=== PATIENT | female | born 1940 | race Caucasian/White ===

== ENCOUNTER 2017-06-24 17:15 | Observation (INO) | payer MEDICARE, BC ==
[2017-06-24] MEDS ORDERED: Sodium Chloride 0.9% 2.5 ML Syringe FLUSH PRN (17:28)
[2017-06-24] MEDS ORDERED: Sodium Chloride 0.9% 10 ML Syringe FLUSH PRN (17:28)
[2017-06-24] MEDS ORDERED: Albuterol/Ipratropium 3.0-0.5 MG/3 ML Neb Soln NEB ONE (17:29)
--- NOTE | 2017-06-24 17:33 | EDM.PDOC ---
ED HPI GENERAL MEDICAL PROBLEM - General Chief Complaint: Respiratory Problem Stated Complaint: SOB Time Seen by Provider: 06/24/17 17:29 Source of Information: Reports: Patient History Limitations: Reports: No Limitations - History of Present Illness INITIAL COMMENTS - FREE TEXT/NARRATIVE: HISTORY AND PHYSICAL: []76-year-old female presenting with shortness of breath for the last 2 days History of Present Illness: []Is visiting from [facility]. And has had increasing shortness of breath. She has low-grade fever. She has been using her albuterol inhaler more frequently for the last 2 weeks Does report recent history of a pneumonia Review of Systems: As per history of present illness and below otherwise all systems reviewed and negative. Past medical history: As per history of present illness and as reviewed below otherwise noncontributory. Surgical history: As per history of present illness and as reviewed below otherwise noncontributory. Social history: No reported history of drug or alcohol abuse. Family history: As per history of present illness and as reviewed below otherwise noncontributory. Physical exam: Very pleasant female. Breathy sounding with speaking. Denies any chest pain has never had any heart condition. HEENT: Atraumatic, normocehpalic, pupils reactive, negative for conjunctival pallor or scleral icterus, mucous membranes moist, throat clear, neck supple, nontender, trachea midline. Lungs: Clear to auscultation, breath sounds equal bilaterally, chest non tender. Shallow breath sounds Heart: S1S2, regular, negative for clicks, rubs, or JVD. Abdomen: Soft, nondistended, nontender. Negative for masses or hepatossplenmegaly. Negative for costovertebral tenderness. Pelvis: Stable nontender. Genitourinary: Deferred. Rectal: Deferred Extremities: Atraumatic, negative for cords or calf pain. Neurovascular unremarkable. Neuro: Awake, alert, oriented. Cranial nerves II through XII unremarkable. Cerebellum unremarkable. Motor and sensory unremarkable throughout. Exam nonfocal. Discussed results with the patient and her daughter, they are agreeable to recommended course of action Discussed case with Dr. Smith who is agreement for observation Diagnostics: []CBC CMP lactic acid chest x-ray troponin Therapeutics: []DuoNeb Impression: []Right-sided pneumonia Plan: []Refer for observation Definitive disposition and diagnosis as appropriate pending reevaluation and review of above. Onset: Gradual Duration: Day(s): (3) Location: Reports: Chest Quality: Reports: Ache Severity: Moderate Improves with: Reports: None Worsens with: Reports: None Associated Symptoms: Reports: Cough, Fever/Chills, Shortness of Breath - Related Data Allergies Allergy/AdvReac Type Severity Reaction Status Date / Time No Known Allergies Allergy Verified 06/24/17 17:22 Home Meds: Home Meds Amoxicillin/Potassium Clav [Augmentin 875-125 Tablet] 1 each PO BID #14 tablet 06/24/17 [Rx] Past Medical History Cardiovascular History: Reports: Hypertension, Other (See Below) Other Cardiovascular History: on water pills, unsure of what for Respiratory History: Reports: COPD - Infectious Disease History Infectious Disease History: Reports: Chicken Pox, Measles, Mumps - Past Surgical History GI Surgical History: Reports: Appendectomy Female Surgical History: Reports: Section Social & Family History - Family History Family Medical History: Noncontributory - Tobacco Use Smoking Status *Q: Never Smoker - Recreational Drug Use Recreational Drug Use: No ED ROS GENERAL - Review of Systems Review Of Systems: ROS reveals no pertinent complaints other than HPI. ED EXAM, GENERAL - Physical Exam Exam: See Below (See dictation) Course - Vital Signs Last Recorded V/S: Last Vital Signs Temp 38.2 C H 06/24/17 17:19 Pulse 108 H 06/24/17 17:19 Resp 22 H 06/24/17 17:19 BP 154/61 H 06/24/17 17:19 Pulse Ox 94 L 06/24/17 17:19 - Orders/Labs/Meds Orders: Active Orders 24 hr Category Date Time Status Patient Status [ADT] Stat ADT 06/24/17 19:41 Ordered EKG Documentation Completion [RC] STAT Care 06/24/17 17:28 Active RT Aerosol Therapy [RC] ASDIRECTED Care 06/24/17 17:29 Active Chest 2V [CR] Stat Exams 06/24/17 17:29 Taken CULTURE BLOOD [BC] Stat Lab 06/24/17 18:03 Received CULTURE BLOOD [BC] Stat Lab 06/24/17 18:17 Received Sodium Chloride 0.9% [Normal Saline] 1,000 ml Med 06/24/17 19:35 Ordered IV STAT Sodium Chloride 0.9% [Saline Flush] Med 06/24/17 17:28 Active 10 ml FLUSH ASDIRECTED PRN Sodium Chloride 0.9% [Saline Flush] Med 06/24/17 17:28 Active 2.5 ml FLUSH ASDIRECTED PRN cefTRIAXone [Rocephin in Dextrose,Iso-Osm 1 GM/50 ML] 1 Med 06/24/17 19:35 Ordered gm Premix Bag 1 bag IV ONETIME Blood Culture x2 Reflex Set [OM.PC] Stat Oth 06/24/17 17:59 Ordered Saline Lock Insert [OM.PC] Stat Oth 06/24/17 17:28 Ordered Medication Orders Ceftriaxone Sodium/Dextrose 1 (gm/ Premix) 50 mls @ 100 mls/hr IV ONETIME ONE Stop: 06/24/17 20:04 Sodium Chloride (Normal Saline) 1,000 mls @ 999 mls/hr IV STAT ONE Stop: 06/24/17 20:35 Sodium Chloride (Saline Flush) 10 ml FLUSH ASDIRECTED PRN PRN Reason: Keep Vein Open Sodium Chloride (Saline Flush) 2.5 ml FLUSH ASDIRECTED PRN PRN Reason: Keep Vein Open Labs: Laboratory Tests 06/24/17 06/24/17 06/24/17 Range/Units 18:03 18:03 18:03 WBC 14.44 H (4.0-11.0) K/uL RBC 4.26 L (4.30-5.90) M/uL Hgb 12.8 (12.0-16.0) g/dL Hct 37.1 (36.0-46.0) % MCV 87.1 (80.0-98.0) fL MCH 30.0 (27.0-32.0) pg MCHC 34.5 (31.0-37.0) g/dL RDW Std Deviation 46.8 (28.0-62.0) fl RDW Coeff of Ty 15 (11.0-15.0) % Plt Count 287 (150-400) K/uL MPV 9.90 (7.40-12.00) fL Neut % (Auto) 75.8 (48.0-80.0) % Lymph % (Auto) 14.2 L (16.0-40.0) % Holt % (Auto) 9.4 (0.0-15.0) % Eos % (Auto) 0.4 (0.0-7.0) % Baso % (Auto) 0.2 (0.0-1.5) % Neut # (Auto) 10.9 H (1.4-5.7) K/uL Lymph # (Auto) 2.1 (0.6-2.4) K/uL Holt # (Auto) 1.4 H (0.0-0.8) K/uL Eos # (Auto) 0.1 (0.0-0.7) K/uL Baso # (Auto) 0.0 (0.0-0.1) K/uL Nucleated RBC % 0.0 /100WBC Nucleated RBCs # 0 K/uL Lactate 1.4 (0.20-2.00) mmol/L Sodium 134 L (136-145) mmol/L Potassium 3.3 L (3.5-5.1) mmol/L Chloride 99 (98-107) mmol/L Carbon Dioxide 24.4 (21.0-32.0) mmol/L BUN 14 (7.0-18.0) mg/dL Creatinine 0.9 (0.6-1.0) mg/dL Est Cr Clr Drug Dosing 49.00 mL/min Estimated GFR (MDRD) > 60.0 ml/min Glucose 124 H (74-106) mg/dL Calcium 9.9 (8.5-10.1) mg/dL Total Bilirubin 0.8 (0.2-1.0) mg/dL AST 26 (15-37) IU/L ALT 21 (14-63) IU/L Alkaline Phosphatase 65 (46-116) U/L Troponin I < 0.050 (0.000-0.056) ng/mL Total Protein 8.1 (6.4-8.2) g/dL Albumin 3.8 (3.4-5.0) g/dL Globulin 4.3 H (2.0-3.5) g/dL Albumin/Globulin Ratio 0.9 L (1.3-2.8) Meds: Medications Generic Name Dose Route Start Last Admin Trade Name Freq PRN Reason Stop Dose Admin Ceftriaxone Sodium/Dextrose 1 50 mls @ 100 mls/hr 06/24/17 19:35 gm/ Premix IV 06/24/17 20:04 ONETIME ONE Sodium Chloride 1,000 mls @ 999 mls/hr 06/24/17 19:35 Normal Saline IV 06/24/17 20:35 STAT ONE Sodium Chloride 10 ml 06/24/17 17:28 Saline Flush FLUSH ASDIRECTED PRN Keep Vein Open Sodium Chloride 2.5 ml 06/24/17 17:28 Saline Flush FLUSH ASDIRECTED PRN Keep Vein Open Discontinued Medications Generic Name Dose Route Start Last Admin Trade Name Freq PRN Reason Stop Dose Admin Acetaminophen 650 mg 06/24/17 19:36 Tylenol PO 06/24/17 19:37 NOW ONE Albuterol/Ipratropium 3 ml 06/24/17 17:29 06/24/17 17:36 Duoneb 3.0-0.5 Mg/3 Ml NEB 06/24/17 17:30 3 ml ONETIME ONE Administration Azithromycin 1,000 mg 06/24/17 19:35 Zithromax PO 06/24/17 19:36 ONETIME ONE Departure - Departure Time of Disposition: 19:27 Disposition: Refer to Observation Condition: Good Clinical Impression: Pneumonia Qualifiers: Pneumonia type: due to unspecified organism Laterality: right Lung location: lower lobe of lung Qualified Code(s): J18.1 - Lobar pneumonia, unspecified organism - Discharge Information Prescriptions: Amoxicillin/Potassium Clav [Augmentin 875-125 Tablet] 1 each PO BID #14 tablet Instructions: Shortness of Breath, Adult, [id number], Community-Acquired Pneumonia, Adult Referrals: PCP,None [Primary Care Provider] - Forms: ED Department Discharge - My Orders Last 24 Hours: My Active Orders 06/24/17 17:28 EKG Documentation Completion [RC] STAT Sodium Chloride 0.9% [Saline Flush] 10 ml FLUSH ASDIRECTED PRN Sodium Chloride 0.9% [Saline Flush] 2.5 ml FLUSH ASDIRECTED PRN Saline Lock Insert [OM.PC] Stat 06/24/17 17:29 RT Aerosol Therapy [RC] ASDIRECTED Chest 2V [CR] Stat 06/24/17 17:59 Blood Culture x2 Reflex Set [OM.PC] Stat 06/24/17 18:03 CULTURE BLOOD [BC] Stat 06/24/17 18:17 CULTURE BLOOD [BC] Stat 06/24/17 19:35 Sodium Chloride 0.9% [Normal Saline] 1,000 ml IV STAT cefTRIAXone [Rocephin in Dextrose,Iso-Osm 1 GM/50 ML] 1 gm Premix Bag 1 bag IV ONETIME 06/24/17 19:41 Patient Status [ADT] Stat - Assessment/Plan Last 24 Hours: My Active Orders 06/24/17 17:28 EKG Documentation Completion [RC] STAT Sodium Chloride 0.9% [Saline Flush] 10 ml FLUSH ASDIRECTED PRN Sodium Chloride 0.9% [Saline Flush] 2.5 ml FLUSH ASDIRECTED PRN Saline Lock Insert [OM.PC] Stat 06/24/17 17:29 RT Aerosol Therapy [RC] ASDIRECTED Chest 2V [CR] Stat 06/24/17 17:59 Blood Culture x2 Reflex Set [OM.PC] Stat 06/24/17 18:03 CULTURE BLOOD [BC] Stat 06/24/17 18:17 CULTURE BLOOD [BC] Stat 06/24/17 19:35 Sodium Chloride 0.9% [Normal Saline] 1,000 ml IV STAT cefTRIAXone [Rocephin in Dextrose,Iso-Osm 1 GM/50 ML] 1 gm Premix Bag 1 bag IV ONETIME 06/24/17 19:41 Patient Status [ADT] Stat
[2017-06-24 18:52] LABS: CHLORIDE,CL 99 mmol/L (98-107); SODIUM,NA 134 mmol/L (136-145)
[2017-06-24] MEDS ORDERED: Sodium Chloride 0.9% 1,000 ML IV ONE (19:35)
[2017-06-24] MEDS ORDERED: Azithromycin 250 MG Tab PO ONE (19:35)
[2017-06-24] MEDS ORDERED: cefTRIAXone 1 GM in Premix Bag 1 BAG IV ONE (19:35)
[2017-06-24] MEDS ORDERED: Acetaminophen 325 MG Tab PO ONE (19:36)
[2017-06-24] MEDS ORDERED: Ondansetron 4 MG/2 ML SDV IVPUSH PRN (20:03)
[2017-06-24] MEDS ORDERED: Acetaminophen 325 MG Tab PO PRN (20:03)
--- NOTE | 2017-06-24 20:10 | PCM.HP ---
H&P History of Present Illness - General Admit Problem/Dx: Admission Diagnosis/Problem Admission Diagnosis/Problem Pneumonia - History of Present Illness Initial Comments - Free Text/Narative: 76 yo female with pmh of HTN who presents with four day history of cough, shortness of breath, fevers, chills, and myalgias. In the ED she was noted to have WBC of 14,440 CXR shows right lower lobe infiltrate. - Related Data Allergies/Adverse Reactions: Allergies Allergy/AdvReac Type Severity Reaction Status Date / Time No Known Allergies Allergy Verified 06/24/17 17:22 Home Medications: Home Meds Amoxicillin/Potassium Clav [Augmentin 875-125 Tablet] 1 each PO BID #14 tablet 06/24/17 [Rx] Past Medical History Cardiovascular History: Reports: Hypertension, Other (See Below) Other Cardiovascular History: on water pills, unsure of what for Respiratory History: Reports: COPD - Infectious Disease History Infectious Disease History: Reports: Chicken Pox, Measles, Mumps - Past Surgical History GI Surgical History: Reports: Appendectomy Female Surgical History: Reports: Section Social & Family History - Family History Family Medical History: Noncontributory - Tobacco Use Smoking Status *Q: Never Smoker - Recreational Drug Use Recreational Drug Use: No H&P Review of Systems - Review of Systems: Review Of Systems: ROS reveals no pertinent complaints other than HPI. Exam - Exam Exam: See Below - Vital Signs Vital Signs: Last Vital Signs Temp 38.2 C H 06/24/17 17:19 Pulse 108 H 06/24/17 17:19 Resp 22 H 06/24/17 17:19 BP 154/61 H 06/24/17 17:19 Pulse Ox 94 L 06/24/17 17:19 Weight: 73.482 kg - Exam General: Alert HEENT: Mucosa Moist & Tiburones Lungs: Clear to Auscultation, Normal Respiratory Effort. No: Rales, Wheezing GI/Abdominal Exam: Soft, Non-Tender Extremities: Non-Tender, No Pedal Edema Skin: Warm, Dry, Intact - Patient Data Lab Results Last 24 hrs: Laboratory Results - last 24 hr 06/24/17 06/24/17 06/24/17 Range/Units 18:03 18:03 18:03 WBC 14.44 H (4.0-11.0) K/uL RBC 4.26 L (4.30-5.90) M/uL Hgb 12.8 (12.0-16.0) g/dL Hct 37.1 (36.0-46.0) % MCV 87.1 (80.0-98.0) fL MCH 30.0 (27.0-32.0) pg MCHC 34.5 (31.0-37.0) g/dL RDW Std Deviation 46.8 (28.0-62.0) fl RDW Coeff of Ty 15 (11.0-15.0) % Plt Count 287 (150-400) K/uL MPV 9.90 (7.40-12.00) fL Neut % (Auto) 75.8 (48.0-80.0) % Lymph % (Auto) 14.2 L (16.0-40.0) % [place] % (Auto) 9.4 (0.0-15.0) % Eos % (Auto) 0.4 (0.0-7.0) % Baso % (Auto) 0.2 (0.0-1.5) % Neut # (Auto) 10.9 H (1.4-5.7) K/uL Lymph # (Auto) 2.1 (0.6-2.4) K/uL [place] # (Auto) 1.4 H (0.0-0.8) K/uL Eos # (Auto) 0.1 (0.0-0.7) K/uL Baso # (Auto) 0.0 (0.0-0.1) K/uL Nucleated RBC % 0.0 /100WBC Nucleated RBCs # 0 K/uL Lactate 1.4 (0.20-2.00) mmol/L Sodium 134 L (136-145) mmol/L Potassium 3.3 L (3.5-5.1) mmol/L Chloride 99 (98-107) mmol/L Carbon Dioxide 24.4 (21.0-32.0) mmol/L BUN 14 (7.0-18.0) mg/dL Creatinine 0.9 (0.6-1.0) mg/dL Est Cr Clr Drug Dosing 49.00 mL/min Estimated GFR (MDRD) > 60.0 ml/min Glucose 124 H (74-106) mg/dL Calcium 9.9 (8.5-10.1) mg/dL Total Bilirubin 0.8 (0.2-1.0) mg/dL AST 26 (15-37) IU/L ALT 21 (14-63) IU/L Alkaline Phosphatase 65 (46-116) U/L Troponin I < 0.050 (0.000-0.056) ng/mL Total Protein 8.1 (6.4-8.2) g/dL Albumin 3.8 (3.4-5.0) g/dL Globulin 4.3 H (2.0-3.5) g/dL Albumin/Globulin Ratio 0.9 L (1.3-2.8) Result Diagrams: 06/24/17 18:03 06/24/17 18:03 Problem List Initiated/Reviewed/Updated: Yes Orders Last 24hrs: Active Orders 24 hr Category Date Time Status Patient Status [ADT] Stat ADT 06/24/17 19:41 Active EKG Documentation Completion [RC] STAT Care 06/24/17 17:28 Active Oxygen Therapy [RC] PRN Care 06/24/17 20:03 Ordered RT Aerosol Therapy [RC] ASDIRECTED Care 06/24/17 17:29 Active Up ad Christiana [RC] ASDIRECTED Care 06/24/17 20:03 Ordered VTE/DVT Education [RC] PER UNIT ROUTINE Care 06/24/17 20:03 Ordered Vital Signs [RC] Q4H Care 06/24/17 20:03 Ordered Regular Diet [DIET] Diet 06/24/17 Breakfast Ordered Chest 2V [CR] Stat Exams 06/24/17 17:29 Taken BASIC METABOLIC PANEL,BMP [CHEM] AM Lab 06/25/17 05:11 Ordered CBC WITH AUTO DIFF [HEME] AM Lab 06/25/17 05:11 Ordered CULTURE BLOOD [BC] Stat Lab 06/24/17 18:03 Received CULTURE BLOOD [BC] Stat Lab 06/24/17 18:17 Received CULTURE SPUTUM + SMEAR [RM] Routine Lab 06/24/17 20:00 Ordered Acetaminophen [Tylenol] Med 06/24/17 20:03 Ordered 650 mg PO Q4H PRN Azithromycin [Zithromax] Med 06/25/17 20:00 Ordered 500 mg PO Q24H Enoxaparin [Lovenox] Med 06/24/17 20:15 Ordered 40 mg SUBCUT Q24H Ondansetron [Zofran] Med 06/24/17 20:03 Ordered 4 mg IVPUSH Q4H PRN Sodium Chloride 0.9% @ 125 MLS/HR (1,000ml) Med 06/24/17 20:15 Ordered Sodium Chloride 0.9% [Normal Saline] 1,000 ml IV ASDIRECTED Sodium Chloride 0.9% [Normal Saline] 1,000 ml Med 06/24/17 19:35 Active IV STAT Sodium Chloride 0.9% [Saline Flush] Med 06/24/17 17:28 Active 10 ml FLUSH ASDIRECTED PRN Sodium Chloride 0.9% [Saline Flush] Med 06/24/17 17:28 Active 2.5 ml FLUSH ASDIRECTED PRN cefTRIAXone [Rocephin] 1,000 mg Med 06/25/17 20:00 Ordered Sodium Chloride 0.9% [Normal Saline] 50 ml IV Q24H Blood Culture x2 Reflex Set [OM.PC] Stat Ot 06/24/17 17:59 Ordered Saline Lock Insert [OM.PC] Stat Ot 06/24/17 17:28 Ordered Sequential Compression Device [OM.PC] Per Unit Routine Oth 06/24/17 20:03 Ordered Resuscitation Status Routine Resus Stat 06/24/17 20:03 Ordered Medication Orders Azithromycin (Zithromax) 500 mg PO Q24H CLAUDE Sodium Chloride (Normal Saline) 1,000 mls @ 999 mls/hr IV STAT ONE Stop: 06/24/17 20:35 Last Admin: 06/24/17 19:42 Dose: 999 mls/hr Ceftriaxone Sodium 1,000 mg/ (Sodium Chloride) 50 mls @ 200 mls/hr IV Q24H CLAUDE Sodium Chloride (Normal Saline) 1,000 mls @ 125 mls/hr IV ASDIRECTED CLAUDE Sodium Chloride (Saline Flush) 10 ml FLUSH ASDIRECTED PRN PRN Reason: Keep Vein Open Last Admin: 06/24/17 19:47 Dose: 10 ml Sodium Chloride (Saline Flush) 2.5 ml FLUSH ASDIRECTED PRN PRN Reason: Keep Vein Open Last Admin: 06/24/17 19:48 Dose: 2.5 ml Assessment/Plan Comment:: 76 yo female admitted with pneumonia. Will treat with IV antibiotics, cultures ordered.
[2017-06-24] MEDS: Levofloxacin/Dextrose 5%-Water 750 MG in Premix Bag 1 BAG IV SCH (22:29)
[2017-06-24] MEDS: Enoxaparin 40 MG/0.4 ML Syringe SUBCUT SCH (22:35)
[2017-06-24] MEDS: Sodium Chloride 0.9% 1,000 ML IV SCH (23:30)
[2017-06-25 07:00] LABS: CHLORIDE,CL 103 mmol/L (98-107); SODIUM,NA 138 mmol/L (136-145)
[2017-06-25] MEDS: Sodium Chloride 0.9% 1,000 ML IV SCH (08:30)
[2017-06-25] MEDS: predniSONE 20 MG Tab PO SCH (10:39)
--- NOTE | 2017-06-25 11:55 | PCM.PN ---
- General Info Date of Service: 06/25/17 Admission Dx/Problem (Free Text): Admission Diagnosis/Problem Admission Diagnosis/Problem Pneumonia Subjective Update: Patient reports feeling much better since admission. She remains on IV Levaquin for community-acquired pneumonia. She states she still short of breath with ambulation but that this is improved as well. She has undergone pulmonary function testing in the past and was diagnosed with COPD. Patient has no cardiac history and denies any peripheral edema or orthopnea. She is tolerating oral intake and voiding appropriately. Functional Status: Reports: Pain Controlled, Tolerating Diet, Ambulating, Urinating - Review of Systems General: Reports: Weakness, Fatigue HEENT: Reports: No Symptoms Pulmonary: Reports: Shortness of Breath, Cough Cardiovascular: Reports: No Symptoms Gastrointestinal: Reports: No Symptoms Genitourinary: Reports: No Symptoms Musculoskeletal: Reports: No Symptoms Skin: Reports: No Symptoms Neurological: Reports: No Symptoms Psychiatric: Reports: No Symptoms - Patient Data Vitals - Most Recent: Last Vital Signs Temp 98.9 F 06/25/17 07:37 Pulse 93 06/25/17 07:37 Resp 18 06/25/17 07:37 BP 121/53 L 06/25/17 07:37 Pulse Ox 95 06/25/17 07:37 Weight - Most Recent: 162 lb I&O - Last 24 Hours: Intake & Output 06/24/17 06/25/17 06/25/17 22:59 06:59 14:59 Intake Total 640 250 Output Total 400 Balance 240 250 Lab Results Last 24 Hours: Laboratory Results - last 24 hr 06/24/17 06/24/17 06/24/17 Range/Units 18:03 18:03 18:03 WBC 14.44 H (4.0-11.0) K/uL RBC 4.26 L (4.30-5.90) M/uL Hgb 12.8 (12.0-16.0) g/dL Hct 37.1 (36.0-46.0) % MCV 87.1 (80.0-98.0) fL MCH 30.0 (27.0-32.0) pg MCHC 34.5 (31.0-37.0) g/dL RDW Std Deviation 46.8 (28.0-62.0) fl RDW Coeff of Ty 15 (11.0-15.0) % Plt Count 287 (150-400) K/uL MPV 9.90 (7.40-12.00) fL Neut % (Auto) 75.8 (48.0-80.0) % Lymph % (Auto) 14.2 L (16.0-40.0) % [place] % (Auto) 9.4 (0.0-15.0) % Eos % (Auto) 0.4 (0.0-7.0) % Baso % (Auto) 0.2 (0.0-1.5) % Neut # (Auto) 10.9 H (1.4-5.7) K/uL Lymph # (Auto) 2.1 (0.6-2.4) K/uL [place] # (Auto) 1.4 H (0.0-0.8) K/uL Eos # (Auto) 0.1 (0.0-0.7) K/uL Baso # (Auto) 0.0 (0.0-0.1) K/uL Nucleated RBC % 0.0 /100WBC Nucleated RBCs # 0 K/uL Lactate 1.4 (0.20-2.00) mmol/L Sodium 134 L (136-145) mmol/L Potassium 3.3 L (3.5-5.1) mmol/L Chloride 99 (98-107) mmol/L Carbon Dioxide 24.4 (21.0-32.0) mmol/L BUN 14 (7.0-18.0) mg/dL Creatinine 0.9 (0.6-1.0) mg/dL Est Cr Clr Drug Dosing 49.00 mL/min Estimated GFR (MDRD) > 60.0 ml/min Glucose 124 H (74-106) mg/dL Calcium 9.9 (8.5-10.1) mg/dL Total Bilirubin 0.8 (0.2-1.0) mg/dL AST 26 (15-37) IU/L ALT 21 (14-63) IU/L Alkaline Phosphatase 65 (46-116) U/L Troponin I < 0.050 (0.000-0.056) ng/mL Total Protein 8.1 (6.4-8.2) g/dL Albumin 3.8 (3.4-5.0) g/dL Globulin 4.3 H (2.0-3.5) g/dL Albumin/Globulin Ratio 0.9 L (1.3-2.8) 06/24/17 06/25/17 06/25/17 Range/Units 23:19 05:04 05:04 WBC 13.44 H (4.0-11.0) K/uL RBC 3.99 L (4.30-5.90) M/uL Hgb 12.0 (12.0-16.0) g/dL Hct 34.9 L (36.0-46.0) % MCV 87.5 (80.0-98.0) fL MCH 30.1 (27.0-32.0) pg MCHC 34.4 (31.0-37.0) g/dL RDW Std Deviation 47.4 (28.0-62.0) fl RDW Coeff of Ty 15 (11.0-15.0) % Plt Count 292 (150-400) K/uL MPV 9.90 (7.40-12.00) fL Neut % (Auto) 76.5 (48.0-80.0) % Lymph % (Auto) 13.2 L (16.0-40.0) % [place] % (Auto) 9.7 (0.0-15.0) % Eos % (Auto) 0.4 (0.0-7.0) % Baso % (Auto) 0.2 (0.0-1.5) % Neut # (Auto) 10.3 H (1.4-5.7) K/uL Lymph # (Auto) 1.8 (0.6-2.4) K/uL [place] # (Auto) 1.3 H (0.0-0.8) K/uL Eos # (Auto) 0.1 (0.0-0.7) K/uL Baso # (Auto) 0.0 (0.0-0.1) K/uL Nucleated RBC % 0.0 /100WBC Nucleated RBCs # 0 K/uL Lactate (0.20-2.00) mmol/L Sodium 138 (136-145) mmol/L Potassium 3.8 (3.5-5.1) mmol/L Chloride 103 (98-107) mmol/L Carbon Dioxide 25.4 (21.0-32.0) mmol/L BUN 10 (7.0-18.0) mg/dL Creatinine 0.9 (0.6-1.0) mg/dL Est Cr Clr Drug Dosing 49.95 mL/min Estimated GFR (MDRD) > 60.0 ml/min Glucose 114 H (74-106) mg/dL Calcium 9.0 (8.5-10.1) mg/dL Total Bilirubin (0.2-1.0) mg/dL AST (15-37) IU/L ALT (14-63) IU/L Alkaline Phosphatase (46-116) U/L Troponin I < 0.050 (0.000-0.056) ng/mL Total Protein (6.4-8.2) g/dL Albumin (3.4-5.0) g/dL Globulin (2.0-3.5) g/dL Albumin/Globulin Ratio (1.3-2.8) 06/25/17 Range/Units 05:04 WBC (4.0-11.0) K/uL RBC (4.30-5.90) M/uL Hgb (12.0-16.0) g/dL Hct (36.0-46.0) % MCV (80.0-98.0) fL MCH (27.0-32.0) pg MCHC (31.0-37.0) g/dL RDW Std Deviation (28.0-62.0) fl RDW Coeff of Ty (11.0-15.0) % Plt Count (150-400) K/uL MPV (7.40-12.00) fL Neut % (Auto) (48.0-80.0) % Lymph % (Auto) (16.0-40.0) % [place] % (Auto) (0.0-15.0) % Eos % (Auto) (0.0-7.0) % Baso % (Auto) (0.0-1.5) % Neut # (Auto) (1.4-5.7) K/uL Lymph # (Auto) (0.6-2.4) K/uL [place] # (Auto) (0.0-0.8) K/uL Eos # (Auto) (0.0-0.7) K/uL Baso # (Auto) (0.0-0.1) K/uL Nucleated RBC % /100WBC Nucleated RBCs # K/uL Lactate (0.20-2.00) mmol/L Sodium (136-145) mmol/L Potassium (3.5-5.1) mmol/L Chloride (98-107) mmol/L Carbon Dioxide (21.0-32.0) mmol/L BUN (7.0-18.0) mg/dL Creatinine (0.6-1.0) mg/dL Est Cr Clr Drug Dosing mL/min Estimated GFR (MDRD) ml/min Glucose (74-106) mg/dL Calcium (8.5-10.1) mg/dL Total Bilirubin (0.2-1.0) mg/dL AST (15-37) IU/L ALT (14-63) IU/L Alkaline Phosphatase (46-116) U/L Troponin I < 0.050 (0.000-0.056) ng/mL Total Protein (6.4-8.2) g/dL Albumin (3.4-5.0) g/dL Globulin (2.0-3.5) g/dL Albumin/Globulin Ratio (1.3-2.8) Matt Results Last 24 Hours: Microbiology 06/25/17 06:50 Gram Stain - Preliminary Sputum - Expectorated Med Orders - Current: Current Medications Acetaminophen (Tylenol) 650 mg PO Q4H PRN PRN Reason: Pain (Mild 1-3)/fever Albuterol/Ipratropium (Duoneb 3.0-0.5 Mg/3 Ml) 3 ml NEB Q8HRRT [facility] Enoxaparin Sodium (Lovenox) 40 mg SUBCUT Q24H [facility] Last Admin: 06/24/17 22:35 Dose: 40 mg Guaifenesin (Mucinex) 600 mg PO TID [facility] Sodium Chloride (Normal Saline) 1,000 mls @ 125 mls/hr IV ASDIRECTED [facility] Last Admin: 06/25/17 08:30 Dose: 125 mls/hr Levofloxacin/Dextrose 750 mg/ (Premix) 150 mls @ 100 mls/hr IV Q24H [facility] Last Admin: 06/24/17 22:29 Dose: 100 mls/hr Ondansetron HCl (Zofran) 4 mg IVPUSH Q4H PRN PRN Reason: Nausea Last Admin: 06/24/17 20:18 Dose: 4 mg Prednisone (Prednisone) 20 mg PO WITHBREAKFAST [facility] Last Admin: 06/25/17 10:39 Dose: 20 mg Sodium Chloride (Saline Flush) 10 ml FLUSH ASDIRECTED PRN PRN Reason: Keep Vein Open Last Admin: 06/24/17 19:47 Dose: 10 ml Sodium Chloride (Saline Flush) 2.5 ml FLUSH ASDIRECTED PRN PRN Reason: Keep Vein Open Last Admin: 06/24/17 19:48 Dose: 2.5 ml Discontinued Medications Acetaminophen (Tylenol) 650 mg PO NOW ONE Stop: 06/24/17 19:37 Last Admin: 06/24/17 19:42 Dose: 650 mg Albuterol/Ipratropium (Duoneb 3.0-0.5 Mg/3 Ml) 3 ml NEB ONETIME ONE Stop: 06/24/17 17:30 Last Admin: 06/24/17 17:36 Dose: 3 ml Azithromycin (Zithromax) 1,000 mg PO ONETIME ONE Stop: 06/24/17 19:36 Last Admin: 06/24/17 19:41 Dose: 1,000 mg Azithromycin (Zithromax) 500 mg PO Q24H [facility] Ceftriaxone Sodium/Dextrose 1 (gm/ Premix) 50 mls @ 100 mls/hr IV ONETIME ONE Stop: 06/24/17 20:04 Last Admin: 06/24/17 20:22 Dose: 100 mls/hr Sodium Chloride (Normal Saline) 1,000 mls @ 999 mls/hr IV STAT ONE Stop: 06/24/17 20:35 Last Admin: 06/24/17 19:42 Dose: 999 mls/hr Ceftriaxone Sodium 1,000 mg/ (Sodium Chloride) 50 mls @ 200 mls/hr IV Q24H [facility] Vancomycin HCl 1 gm/ Sodium (Chloride) 250 mls @ 250 mls/hr IV Q18H [facility] Last Admin: 06/25/17 09:49 Dose: 250 mls/hr Vancomycin HCl (Pharmacy To Dose - Vancomycin) 1 dose .XX ASDIRECTED [facility] - Exam Quality Assessment: DVT Prophylaxis General: Alert, Oriented, Cooperative, No Acute Distress Lungs: Normal Respiratory Effort, Wheezing Cardiovascular: Regular Rate, Regular Rhythm GI/Abdominal Exam: Normal Bowel Sounds, Soft, Non-Tender, No Organomegaly, No Distention, No Abnormal Bruit, No Mass, Pelvis Stable Extremities: Normal Inspection, Normal Range of Motion, Non-Tender, No Pedal Edema, Normal Capillary Refill Peripheral Pulses: 2+: Radial (L), Radial (R), Posterior Tibial (L), Posterior Tibial (R) Skin: Warm, Dry, Intact Neurological: No New Focal Deficit Psy/Mental Status: Alert, Normal Affect, Normal Mood - Problem List & Annotations (1) Pneumonia SNOMED Code(s): 879698937 Code(s): J18.9 - PNEUMONIA, UNSPECIFIED ORGANISM Status: Acute Current Visit: Yes Qualifiers: Pneumonia type: due to unspecified organism Laterality: right Lung location: lower lobe of lung Qualified Code(s): J18.1 - Lobar pneumonia, unspecified organism - Problem List Review Problem List Initiated/Reviewed/Updated: Yes - My Orders Last 24 Hours: My Active Orders 06/25/17 10:06 predniSONE 20 mg PO WITHBREAKFAST 06/25/17 10:07 Incentive Spirometry [RT Incentive Spirometry] [RC] ASDIRECTED RT Aerosol Therapy [RC] ASDIRECTED 06/25/17 14:00 Albuterol/Ipratropium [DuoNeb 3.0-0.5 MG/3 ML] 3 ml NEB Q8HRRT guaiFENesin [Mucinex] 600 mg PO TID - Plan Plan:: 76-year-old female admitted with pneumonia. #1. Pneumonia: -Continue IV Levaquin. -Patient is still short of breath. we will schedule DuoNeb treatments, start Mucinex and order incentive spirometry. -Patient does have COPD and this could be contributing to her shortness of breath along with the pneumonia. Patient started on prednisone 20 mg daily. -Sputum culture showed gram-positive and negative rods along with gram-positive cocci in clusters. -White count has improved to 13.4 from 14.4. May go up secondary to prednisone DVT prophylaxis: SCDs and Lovenox. Disposition: 1-2 days pending improvement.
[2017-06-25] MEDS: guaiFENesin 600 MG Tab.ER PO SCH ×2 (13:02→21:36)
[2017-06-25] MEDS: Albuterol/Ipratropium 3.0-0.5 MG/3 ML Neb Soln NEB SCH ×2 (13:37→21:01)
[2017-06-25] MEDS ORDERED: cefTRIAXone 1,000 MG in Sodium Chloride 0.9% 50 ML IV SCH (20:00)
[2017-06-25] MEDS ORDERED: Azithromycin 250 MG Tab PO SCH (20:00)
[2017-06-25] MEDS: Levofloxacin/Dextrose 5%-Water 750 MG in Premix Bag 1 BAG IV SCH (21:16)
[2017-06-25] MEDS: Enoxaparin 40 MG/0.4 ML Syringe SUBCUT SCH (21:17)
[2017-06-25] MEDS ORDERED: LORazepam 1 MG Tab PO ONE (22:59)
[2017-06-26] MEDS: guaiFENesin 600 MG Tab.ER PO SCH (05:02)
[2017-06-26] MEDS: Albuterol/Ipratropium 3.0-0.5 MG/3 ML Neb Soln NEB SCH ×2 (05:57→13:37)
[2017-06-26 06:00] LABS: CHLORIDE,CL 106 mmol/L (98-107)
[2017-06-26 06:21] LABS: SODIUM,NA 139 mmol/L (136-145)
[2017-06-26] MEDS: predniSONE 20 MG Tab PO SCH (08:53)
--- NOTE | 2017-06-26 15:16 | PCM.DCSUM1 ---
Discharge Summary - Discharge Data Discharge Date: 06/26/17 Discharge Disposition: Home, Self-Care 01 Condition: Good - Patient Summary/Data Hospital Course: 76 yo female with pmh of COPD, and HTN who presents with four day history of cough, shortness of breath, fevers, chills, and myalgias. In the ED she was noted to have WBC of 14,440 CXR shows right lower lobe infiltrate. She was admitted for pneumonia and treated with Levaquin. She was also started on prednisone due to her COPD and wheezing noted on exam. Today she is requesting discharge home. She was discharged on Levaquin and prednisone for five more days as well as an albuterol inhaler. - Discharge Plan Prescriptions/Med Rec: Albuterol Sulfate [Proventil Hfa] 6.7 gm IH Q6HR PRN #1 hfa.aer.ad PRN Reason: wheezing Levofloxacin [Levaquin] 750 mg PO DAILY #5 tablet Prednisone [IJD: predniSONE] 20 mg PO WITHBREAKFAST #5 tablet Home Medications: Home Meds Albuterol Sulfate [Proventil Hfa] 6.7 gm IH Q6HR PRN #1 hfa.aer.ad 06/26/17 [Rx] Levofloxacin [Levaquin] 750 mg PO DAILY #5 tablet 06/26/17 [Rx] Prednisone [IJD: predniSONE] 20 mg PO WITHBREAKFAST #5 tablet 06/26/17 [Rx] Patient Handouts: Shortness of Breath, Adult, [id number], Community-Acquired Pneumonia, Adult Forms: ED Department Discharge Referrals: PCP,None [Primary Care Provider] - - Patient Data Vitals - Most Recent: Last Vital Signs Temp 37.2 C 06/26/17 11:48 Pulse 77 06/26/17 11:48 Resp 16 06/26/17 11:48 BP 126/54 L 06/26/17 11:48 Pulse Ox 93 L 06/26/17 11:48 Weight - Most Recent: 73.482 kg I&O - Last 24 hours: Intake & Output 06/26/17 06/26/17 06/26/17 06:59 14:59 22:59 Intake Total 800 Output Total 450 Balance 350 Lab Results - Last 24 hrs: Laboratory Results - last 24 hr 06/26/17 06/26/17 Range/Units 05:19 05:19 WBC 11.09 H (4.0-11.0) K/uL RBC 3.51 L (4.30-5.90) M/uL Hgb 10.3 L (12.0-16.0) g/dL Hct 30.8 L (36.0-46.0) % MCV 87.7 (80.0-98.0) fL MCH 29.3 (27.0-32.0) pg MCHC 33.4 (31.0-37.0) g/dL RDW Std Deviation 48.9 (28.0-62.0) fl RDW Coeff of Ty 15 (11.0-15.0) % Plt Count 262 (150-400) K/uL MPV 9.80 (7.40-12.00) fL Neut % (Auto) 67.9 (48.0-80.0) % Lymph % (Auto) 19.2 (16.0-40.0) % [place] % (Auto) 12.3 (0.0-15.0) % Eos % (Auto) 0.5 (0.0-7.0) % Baso % (Auto) 0.1 (0.0-1.5) % Neut # (Auto) 7.5 H (1.4-5.7) K/uL Lymph # (Auto) 2.1 (0.6-2.4) K/uL [place] # (Auto) 1.4 H (0.0-0.8) K/uL Eos # (Auto) 0.1 (0.0-0.7) K/uL Baso # (Auto) 0.0 (0.0-0.1) K/uL Nucleated RBC % 0.0 /100WBC Nucleated RBCs # 0 K/uL Sodium 139 (136-145) mmol/L Potassium 3.4 L (3.5-5.1) mmol/L Chloride 106 (98-107) mmol/L Carbon Dioxide 24.2 (21.0-32.0) mmol/L BUN 8 (7.0-18.0) mg/dL Creatinine 0.8 (0.6-1.0) mg/dL Est Cr Clr Drug Dosing 56.20 mL/min Estimated GFR (MDRD) > 60.0 ml/min Glucose 112 H (74-106) mg/dL Calcium 8.6 (8.5-10.1) mg/dL SD Results - Last 24 hrs: Microbiology 06/24/17 18:17 Aerobic Blood Culture - Preliminary Blood - Venous - Lab Draw NO GROWTH AFTER 1 DAY Anaerobic Blood Culture - Preliminary NO GROWTH AFTER 1 DAY 06/24/17 18:03 Aerobic Blood Culture - Preliminary Blood - Venous NO GROWTH AFTER 1 DAY Anaerobic Blood Culture - Preliminary NO GROWTH AFTER 1 DAY Med Orders - Current: Current Medications Acetaminophen (Tylenol) 650 mg PO Q4H PRN PRN Reason: Pain (Mild 1-3)/fever Albuterol/Ipratropium (Duoneb 3.0-0.5 Mg/3 Ml) 3 ml NEB Q8HRRT [facility] Last Admin: 06/26/17 13:37 Dose: 3 ml Enoxaparin Sodium (Lovenox) 40 mg SUBCUT Q24H [facility] Last Admin: 06/25/17 21:17 Dose: 40 mg Guaifenesin (Mucinex) 600 mg PO TID [facility] Last Admin: 06/26/17 05:02 Dose: 600 mg Levofloxacin/Dextrose 750 mg/ (Premix) 150 mls @ 100 mls/hr IV Q24H [facility] Last Admin: 06/25/17 21:16 Dose: 100 mls/hr Ondansetron HCl (Zofran) 4 mg IVPUSH Q4H PRN PRN Reason: Nausea Last Admin: 06/24/17 20:18 Dose: 4 mg Prednisone (Prednisone) 20 mg PO WITHBREAKFAST [facility] Last Admin: 06/26/17 08:53 Dose: 20 mg Sodium Chloride (Saline Flush) 10 ml FLUSH ASDIRECTED PRN PRN Reason: Keep Vein Open Last Admin: 06/24/17 19:47 Dose: 10 ml Sodium Chloride (Saline Flush) 2.5 ml FLUSH ASDIRECTED PRN PRN Reason: Keep Vein Open Last Admin: 06/24/17 19:48 Dose: 2.5 ml Discontinued Medications Acetaminophen (Tylenol) 650 mg PO NOW ONE Stop: 06/24/17 19:37 Last Admin: 06/24/17 19:42 Dose: 650 mg Albuterol/Ipratropium (Duoneb 3.0-0.5 Mg/3 Ml) 3 ml NEB ONETIME ONE Stop: 06/24/17 17:30 Last Admin: 06/24/17 17:36 Dose: 3 ml Azithromycin (Zithromax) 1,000 mg PO ONETIME ONE Stop: 06/24/17 19:36 Last Admin: 06/24/17 19:41 Dose: 1,000 mg Azithromycin (Zithromax) 500 mg PO Q24H [facility] Ceftriaxone Sodium/Dextrose 1 (gm/ Premix) 50 mls @ 100 mls/hr IV ONETIME ONE Stop: 06/24/17 20:04 Last Admin: 06/24/17 20:22 Dose: 100 mls/hr Sodium Chloride (Normal Saline) 1,000 mls @ 999 mls/hr IV STAT ONE Stop: 06/24/17 20:35 Last Admin: 06/24/17 19:42 Dose: 999 mls/hr Ceftriaxone Sodium 1,000 mg/ (Sodium Chloride) 50 mls @ 200 mls/hr IV Q24H [facility] Sodium Chloride (Normal Saline) 1,000 mls @ 125 mls/hr IV ASDIRECTED [facility] Last Admin: 06/25/17 08:30 Dose: 125 mls/hr Vancomycin HCl 1 gm/ Sodium (Chloride) 250 mls @ 250 mls/hr IV Q18H [facility] Last Admin: 06/25/17 09:49 Dose: 250 mls/hr Lorazepam (Ativan) 1 mg PO ONETIME ONE Stop: 06/25/17 23:00 Last Admin: 06/25/17 23:13 Dose: 1 mg Vancomycin HCl (Pharmacy To Dose - Vancomycin) 1 dose .XX ASDIRECTED [facility]
--- NOTE | 2017-06-27 10:20 | CR ---
EXAM DATE: 06/24/17 PATIENT'S AGE: 76 Patient: YESENIA LONG Facility: [place], [place] Site . Site : 1940 Study: XRay Chest [id number]/27/2018 6:30:24 PM Ordering Physician: Doctor Santacruz Final Report: Pain shortness of breath Two-view chest x-ray Findings: Normal cardiac mediastinal silhouette. Right diffuse peripheral ill- defined opacities could represent infiltrate. No effusion or pneumothorax. Left lung appears clear. IMPRESSION: 1. Subtle peripheral right opacities could represent infiltrate. Dictated by Floresita Ordonez MD @ Jun 24 2017 7:05PM (Electronic Signature) Report Signed by Proxy. KENA
== END 2017-06-26 15:55 | disposition home or self-care (01) ==
LOC: MW.ED 17:15 → MW.MS 19:41
PROVIDERS: ADMIT Internal Medicine; ATTEND Internal Medicine
DX: J44.0 Chronic obstructive pulmonary disease with (acute) lower respiratory infection (principal); J18.1 Lobar pneumonia, unspecified organism; I10 Essential (primary) hypertension; Z90.49 Acquired absence of other specified parts of digestive tract
CPT/HCPCS: 36415; 71046; 80048; 80053; 83605; 84484; 85025; 87040; 87070; 87205; 93005; 94640; 96361; 96365; 96367; 96372; 96375; 96376; 99285; A9270; G0378; J0696; J1650; J1956; J2405; J3370; J7040; J7050; 99283